=== PATIENT | male | born 1960 | race Caucasian/White ===

== ENCOUNTER → 2021-08-18 | Outpatient (CLI) | payer BC ==
[2021-08-18 08:54] LABS: HEMOGLOBIN 15.1 gm/dl (14.0-17.5); RED BLOOD COUNT 4.57 M/UL (4.20-5.50)
[2021-08-18 09:36] LABS: BUN/CREATININE RATIO 20 (0-10)
== END ==
LOC: LAB 08:26
PROVIDERS: Family Medicine
DX: Z12.5 Encounter for screening for malignant neoplasm of prostate (principal); E78.5 Hyperlipidemia, unspecified
CPT/HCPCS: 36415; 80053; 80061; 83735; 84153; 85027

== ENCOUNTER → 2021-10-03 | Outpatient (CLI) | payer BC | LOC: LAB 07:32 | DX: R97.20 Elevated prostate specific antigen [PSA] (principal) | CPT/HCPCS: 36415; 81001; 82565; 84153 ==